=== PATIENT | male | born 1985 | race Caucasian/White ===

== ENCOUNTER 2017-03-05 12:49 | Emergency (ER) | payer SELFPAY ==
[~2017-03-05] VITALS: Ht 172.7 cm; Wt 146.8 kg
[~2017-03-05 12:49] MED LIST: PANT40TA PO
[2017-03-05 12:55] VITALS: TEMP 36.7; Ht 172.7 cm; Wt 146.8 kg
[2017-03-05 13:37] LABS: BASO % 0.1 %; BASO ABS # 0.01 K/uL (0-0.2); COMPLETE YES; EOS % 1.6 %; HEMATOCRIT 48.8 % (42-52); IG% 0.4 %; LYMPH % 16.9 %; LYMPH ABS # 2.04 K/uL (1.2-3.4); MEAN CELL VOLUME 82.7 fL (80-100); MEAN CORPUSCULAR HEMOGLOBIN 27.8 pg (25-34); MEAN CORPUSCULAR HGB CONC 33.6 g/dl (32-36); MEAN PLATELET VOLUME 8.7 fL (7.4-10.4); PLATELET COUNT 371 K/uL (130-400); WHITE BLOOD COUNT 12.06 K/uL (4.8-10.8)
--- NOTE | 2017-03-05 13:37 | DIAGNOSTIC IMAGING REPORT ---
TWO VIEW CHEST CLINICAL HISTORY: Cough. FINDINGS: PA and lateral chest radiographs are obtained. No prior studies are available for comparison at the time of dictation. The examination is degraded by large body habitus. The cardiomediastinal silhouette is unremarkable. The lungs and pleural spaces are clear. There is no pneumothorax. The bony thorax appears intact. IMPRESSION: No active disease in the chest. Electronically signed by: Deniz Lopez M.D. 03/05/2017 1:35 PM Dictated Date/Time: 03/05/2017 1:34 PM
--- NOTE | 2017-03-05 13:52 | EMERGENCY ROOM VISIT NOTE ---
ED Visit Note First contact with patient: 13:05 CHIEF COMPLAINT: Cough with brown mucus, congestion and drainage HPI: This patient complains of gradual onset over the past 2 weeks, of a runny nose and congestion with mild facial pain. Started with a tickle in his throat and then started coughing. Initially coughing up clear mucus, now has turned to a yellow-brown color. Feeling generally tired and ill, with some subjective chills, but no fevers. Does complain of a sore, irritated throat. Denies nausea or vomiting, difficulty swallowing, headache, neck pain, shortness of breath, chest pain, abdominal pain, diarrhea or constipation, urinary symptoms, or rash. Patient states the main reason he is here is because he was worried about his "Monroe's esophagus," though he states he has had several endoscopies over the past several years, last study was 2 years ago when his GI doctor cleared him and told him he no longer had to follow up with routine endoscopy. He denies vomiting or coughing up blood, difficulty or pain with swallowing, chest pain, or stomach pain. REVIEW OF SYSTEMS: A complete 10 point review of systems was reviewed with the patient with pertinent positives and negatives as per history of present illness. All else were negative. PMH: The patient is healthy; there is no significant medical or surgical history. SOCIAL HISTORY: Patient lives at home. Does not use alcohol excessively. PHYSICAL EXAM: Vital Signs: Reviewed Nurse's notes. Vital signs stable and afebrile. CONSTITUTIONAL: No acute distress. Nontoxic appearing and well-hydrated. Alert and oriented X 4 with normal affect. FACE: Some tenderness bilaterally over the zygomatic arches but no reddening of the skin. HEENT: Normocephalic, atraumatic. Pupils equal, round and reactive to light, EOMI. TMs normal. Pharynx erythematous, no exudate or significant edema, uvula midline. Moist mucous membranes NECK: Supple, full active range of motion without discomfort. RESPIRATORY: Clear to auscultation bilaterally with no wheezing, crackles, rhonchi or stridor. Equal expansion bilaterally. CARDIOVASCULAR: Regular rate and rhythm with no murmurs, rubs or gallops. Normal peripheral perfusion. No edema. GASTROINTESTINAL: Soft, nontender, nondistended. Bowel sounds present in all quadrants. MUSCULOSKELETAL: Full range of motion of all joints without discomfort. INTEGUMENTARY: No rash or other significant dermatologic conditions noted. NEUROLOGIC: Cranial nerves II-XII grossly intact. No focal neurologic deficits noted. ED COURSE: I examined the patient. Differential diagnosis includes sinusitis viral versus bacterial, pharyngitis viral versus bacterial, URI, bronchitis, pneumonia, among others. Basic labs reviewed, mild leukocytosis with left shift most likely related to upper respiratory infection. CXR reviewed, no evidence of pneumonia or other acute abnormality. Large amount of white-yellow mucus noted in the posterior pharynx, suspect sinus drainage as cause for throat irritation and coughing. I do not suspect any complication of Monroe's esophagus or esophageal irritation, patient's symptoms seemed to be all related to posterior nasal drainage, suspected sinus infection. Given the duration and progressively worsening symptoms, will place patient on antibiotics, prescription for amoxicillin sent to pharmacy. Patient was instructed to follow up with his PCP, he verbalized understanding. Patient was discharged home in stable condition. Medication Reconciliation: I attest that I have personally reviewed the patient' s current medication list. Blood pressure screening: The patient was found to have an elevated blood pressure and was referred to their primary doctor for recheck and further treatment. I discussed the patient with Dr. Plaza, who agrees with my assessment and plan. Current/Historical Medications Scheduled Amoxicillin (Amoxil), 500 MG PO TID Pantoprazole (Protonix), 40 MG PO BID Allergies Coded Allergies: No Known Allergies (Unverified , 03/05/17) Vital Signs Date Time Temp Pulse Resp B/P (MAP) Pulse Ox O2 Delivery O2 Flow Rate FiO2 03/05/17 14:47 80 18 153/84 99 03/05/17 12:55 36.7 91 20 144/89 96 Room Air Laboratory Results 03/05/17 13:30 Red Blood Count 5.90, Mean Corpuscular Volume 82.7, Mean Corpuscular Hemoglobin 27.8, Mean Corpuscular Hemoglobin Concent 33.6, Mean Platelet Volume 8.7, Neutrophils (%) (Auto) 75.0, Lymphocytes (%) (Auto) 16.9, Monocytes (%) (Auto) 6.0, Eosinophils (%) (Auto) 1.6, Basophils (%) (Auto) 0.1, Neutrophils # (Auto) 9.05, Lymphocytes # (Auto) 2.04, Monocytes # (Auto) 0.72, Eosinophils # (Auto) 0.19, Basophils # (Auto) 0.01 03/05/17 13:30 Test 03/05/17 13:30 White Blood Count 12.06 K/uL (4.8-10.8) Red Blood Count 5.90 M/uL (4.7-6.1) Hemoglobin 16.4 g/dL (14.0-18.0) Hematocrit 48.8 % (42-52) Mean Corpuscular Volume 82.7 fL (80-100) Mean Corpuscular Hemoglobin 27.8 pg (25-34) Mean Corpuscular Hemoglobin Concent 33.6 g/dl (32-36) Platelet Count 371 K/uL (130-400) Mean Platelet Volume 8.7 fL (7.4-10.4) Neutrophils (%) (Auto) 75.0 % Lymphocytes (%) (Auto) 16.9 % Monocytes (%) (Auto) 6.0 % Eosinophils (%) (Auto) 1.6 % Basophils (%) (Auto) 0.1 % Neutrophils # (Auto) 9.05 K/uL (1.4-6.5) Lymphocytes # (Auto) 2.04 K/uL (1.2-3.4) Monocytes # (Auto) 0.72 K/uL (0.11-0.59) Eosinophils # (Auto) 0.19 K/uL (0-0.5) Basophils # (Auto) 0.01 K/uL (0-0.2) RDW Standard Deviation 42.1 fL (36.4-46.3) RDW Coefficient of Variation 14.0 % (11.5-14.5) Immature Granulocyte % (Auto) 0.4 % Immature Granulocyte # (Auto) 0.05 K/uL (0.00-0.02) Anion Gap 6.0 mmol/L (3-11) Est Creatinine Clear Calc Drug Dose 158.7 ml/min Estimated GFR () 122.4 Estimated GFR (Non- 105.6 BUN/Creatinine Ratio 9.9 (10-20) Calcium Level 9.1 mg/dl (8.5-10.1) Departure Information Impression Primary Impression: Sinusitis Dispostion Home / Self-Care Condition GOOD Prescriptions Amoxicillin (AMOXIL) 500 Mg Cap 500 MG PO TID for 10 Days, #30 CAP Prov: Vandana Rahman CRNP 03/05/17 Referrals Matthew Ross PA-C (PCP) Patient Instructions ED Sinusitis Leroy Summers, [facility] Additional Instructions You are being treated for a sinus infection. Take prescription medications as prescribed. Amoxicillin 500 mg 3 times a day for 10 days. All antibiotics have the potential to cause diarrhea. A few develop a rash while on this medication stop the medication and see your family physician for evaluation. You may take a probiotic while taking the antibiotic to help prevent diarrhea. Ibuprofen(Motrin, Advil) may be used for fever or pain. Use 600mg every 6-8 hours as needed. Take with food. Avoid using more than 2400mg in a 24 hour period. Do not use 2400mg per day for more than three consecutive days without physician direction. Prolonged inappropriate use can lead to stomach upset or ulcers. (AND/OR) Acetaminophen(Tylenol) may be used for fever or pain. Use 1000mg every 8 hours as needed. Avoid using more than 3000mg in a 24 hour period. Use warm salt water gargles. And drink warm tea to help soothe your throat. Use saline nasal spray to help keep your nasal passages moist and help reduce inflammation. You may also try nasal Flonase or nasal next, 2 sprays to each nostril once a day to help reduce nasal inflammation and drainage. Follow-up with your PCP in the next few days for re-evaluation, or sooner if your symptoms are worsening. Return to emergency department if you develop symptoms of difficulty breathing, wheezing, chest pain, increased pain or difficulty swallowing, persistent high fevers after taking antibiotics for more than 24 hours, or any other concerns. Problem Qualifiers Primary Impression: Sinusitis Sinusitis location: unspecified location Chronicity: acute Recurrence: not specified as recurrent Qualified Codes: J01.90 - Acute sinusitis, unspecified
[2017-03-05 13:54] LABS: BUN/CREATININE RATIO 9.9 (10-20); CALCIUM 9.1 mg/dl (8.5-10.1); CREATININE 0.96 mg/dl (0.60-1.40)
[2017-03-05] MEDS ORDERED: AMOX500C3 PO (14:33)
[2017-03-05 14:47] VITALS: BP 153/84; PULSE 80; O2SAT 99
[2017-03-15] MEDS ORDERED: CEFU500T16 PO (08:46)
== END 2017-03-05 14:48 | disposition home or self-care (01) ==
LOC: C.EDB 12:52 → C.EDC 14:48
DX: J01.90 Acute sinusitis, unspecified (principal)

== ENCOUNTER 2017-03-09 20:13 | Emergency (ER) | payer SELFPAY ==
[~2017-03-09] VITALS: Ht 172.7 cm; Wt 135.7 kg
[~2017-03-09 20:13] MED LIST changes: +AMOX500C3 PO
[2017-03-09 20:17] VITALS: TEMP 36.7; Ht 172.7 cm; Wt 135.7 kg
[2017-03-09] MEDS ORDERED: IBUP-1050 PO (20:59)
[2017-03-09 21:07] VITALS: BP 131/81; PULSE 81; O2SAT 96
--- NOTE | 2017-03-09 23:02 | EMERGENCY ROOM VISIT NOTE ---
History First contact with patient: 20:30 Chief Complaint: SORETHROAT Stated Complaint: PAIN IN THROAT, TONGUE NUMBNESS History of Present Illness The patient is a 32 year old male who presents to the Emergency Room with complaints of pain in his throat for the past several days. The patient was seen and evaluated 2 days ago where he was diagnosed with a sinusitis. He was started on amoxicillin and states that much of his sinus drainage and congestion has improved. He feels this is much better today than it had been. The patient continues to complain of irritation in his throat, and identifies his discomfort is very low in the throat roughly at the level of the cricoid. He has a history of Monroe's esophagus, and is concerned that this may have relapsed. The patient has not had fever or chills. He does have a history of GERD, but is not currently taking his Protonix. 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 Review of Systems More than 10 systems were reviewed and otherwise negative with the exception of history of present illness. Past Medical/Surgical History History of Monroe's esophagitis Family History No pertinent family history Social History Smoking Status: Current Every Day Smoker Housing Status: lives with family Current/Historical Medications Scheduled Amoxicillin (Amoxil), 500 MG PO TID Pantoprazole (Protonix), 40 MG PO BID Scheduled PRN Ibuprofen (Advil), 600 MG PO DAILY PRN for Pain Allergies Coded Allergies: No Known Allergies (Unverified , 03/09/17) Physical Exam Vital Signs Date Time Temp Pulse Resp B/P (MAP) Pulse Ox O2 Delivery O2 Flow Rate FiO2 03/09/17 21:07 81 20 131/81 96 03/09/17 20:20 97 Room Air 03/09/17 20:17 36.7 86 20 141/81 97 Room Air Pain Rating (0-10): 5.0 Physical Exam VITALS: Vitals are noted on the nurse's note and reviewed by myself. Vital signs stable. GENERAL: Well-developed, well-nourished, white male, who is in no acute distress and resting comfortably. Patient is cooperative with the examination. HEAD: Normocephalic atraumatic. EARS: External ear normal. External auditory canals clear, tympanic membranes pearly remy without erythema or effusion bilaterally. EYES: Pupils equal round and reactive to light and accommodation. Conjunctivae without injection, sclerae without icterus. Extraocular movements intact. NOSE: Patent, turbinates without inflammation or discharge. MOUTH: Mucous membranes moist. Tonsils are not enlarged. Pharynx without erythema, blood, or exudate. Uvula midline. Airway patent. NECK: Supple without nuchal rigidity. No lymphadenopathy. No thyromegaly. Cervical spine is nontender. HEART: Regular rate and rhythm without murmurs gallops or rubs. LUNGS: Clear to auscultation bilaterally without wheezes, rales or rhonchi. No retractions or accessory muscle use. Medical Decision & Procedures ED Course Physical exam and history were performed. Nursing notes, EMR, and Medication List were personally reviewed. Patient appears to have pain that is very deeply located in his throat. The patient describes it as a burning sensation. I was able to review the patient' s EMR at this facility with him. His last endoscopy was 20 months ago which did show inflammation with biopsy negative for Monroe's esophagitis. He did have an EGD in 2011 which did return as positive for Monroe's esophagitis. At the patient's visit 2 days ago he had blood work, and he was not anemic at that time. His vital signs are normal today. Overall the patient does not appear to have active bleed that would require emergent endoscopy, which is the patient 's concern today. He is on amoxicillin which would cover for strep. I suspect that his symptoms are likely an exacerbation of chronic GERD. He is currently not taking Protonix, and I feel that he should return to his dosing of twice daily. 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 He was otherwise invited back to the ER with any new, worsening, or concerning symptoms. The chart was completed utilizing [employer] Voice Recognition Software. Grammatical errors, random word insertions, pronoun errors, and incomplete sentences are an occasional consequence of this system due to software limitations, ambient noise, and hardware issues. Any formal questions or concerns about the content, text, or information contained within the body of this dictation should be directly addressed to the provider for clarification. . Medical Decision Differential diagnosis: Etiologies such as viral syndrome, tonsillitis, streptococcal pharyngitis, mononucleosis, peritonsillar abscess, retropharyngeal abscess, otitis, pneumonia , influenza, as well as others were entertained. Impression Primary Impression: Throat pain in adult Additional Impression: History of Monroe's esophagus Departure Information Dispostion Home / Self-Care Condition GOOD Referrals Corry Stevens, DO Forms HOME CARE DOCUMENTATION FORM, IMPORTANT VISIT INFORMATION Patient Instructions [facility] Additional Instructions You were seen and evaluated today on an emergency basis only. This is not a substitute for, or an effort to provide, complete comprehensive medical care. It is not possible to recognize and treat all injuries or illnesses in a single emergency department visit. For this reason it is recommended that you followup with Gastroenterology next week for ongoing care and evaluation. Begin your Protonix twice daily. You are welcome to return to the emergency department anytime with new, worsening, or concerning symptoms. Problem Qualifiers
== END 2017-03-09 21:09 | disposition home or self-care (01) ==
LOC: C.EDB 20:14 → C.EDD 21:09
DX: R07.0 Pain in throat (principal); K22.70 Barrett's esophagus without dysplasia; F17.200 Nicotine dependence, unspecified, uncomplicated

== ENCOUNTER → 2017-03-16 | Day surgery (SDC) | payer SELFPAY ==
[2017-03-15 08:47] VITALS: Ht 175.3 cm; Wt 140.9 kg
[~2017-03-16] VITALS: Ht 175.3 cm; Wt 140.9 kg
[~2017-03-16] MED LIST changes: -AMOX500C3 PO; +CEFU500T16 PO; +LIDOCAINE HCL 2% 2 ML VIAL (20MG/ML) ONE; +MIDAZOLAM HCL 1 MG/ML 2ML VIAL ONE; +PROPOFOL IV EMULSION 10 MG/ML 20 ML VIAL IV ONE; +SODIUM CHLORIDE 0.9% 500ML 500 ML IV ONE
[2017-03-16 09:40] VITALS: TEMP 36.9
--- NOTE | 2017-03-16 10:17 | Endo History and Physical ---
History & Physical Date of Service: Mar 16, 2017. Chief Complaint: Monroe's Referring Physician: Jose D Villagran History of Present Illness Hx of Monroe's esophagus. Past Medical History Reflux Past Surgical History Hx Cardiac Surgery: No Hx Internal Defibrillator: No Hx Pacemaker: No Hx Abdominal Surgery: No Hx of Implantable Prosthesis: No Hx Post-Op Nausea and Vomiting: No Hx Cancer Surgery: No Hx Thoracic Surgery: No Hx Orthopedic: No Hx Urinary Tract Surgery: No Family History None Social History Smoking Status: Former Smoker Hx Substance Use: No (MARIJUANA IN PAST "NOT IN A LONG TIME") Hx Alcohol Use: Yes (OCCASIONALLY) Allergies Coded Allergies: No Known Allergies (Unverified , 03/15/17) Current Medications Reported Home Medications Medications Dose Route/Sig Max Daily Dose Days Date Category Ceftin (Cefuroxime Axetil) 500 Mg Tab 500 Mg PO BID 03/15/17 Reported Protonix (Pantoprazole Sodium) 40 Mg Tab 40 Mg PO BID 04/28/15 Reported Vital Signs Weight (Kilograms): 140.91 Height (Feet): 5 Height (Inches): 9 Date Time Temp Pulse Resp B/P (MAP) Pulse Ox O2 Delivery O2 Flow Rate FiO2 03/16/17 09:40 36.9 79 18 131/73 (92) 96 Room Air Physical Exam General Appearance: no apparent distress Respiratory/Chest: Auscultation: breath sounds normal Cardiovascular: Heart Auscultation: RRR Abdomen: Inspection & Palpation: soft, no tenderness, guarding & rebound, no masses Assessment and Plan stable for upper endoscopy
--- NOTE | 2017-03-16 10:43 | Discharge Instructions ---
Endoscopy Patient Instructions Date / Procedure(s) Performed Mar 16, 2017. EGD Allergy Information Coded Allergies: No Known Allergies (Unverified , 03/15/17) Discharge Date / Findings Mar 16, 2017. Short segment Monroe's. Provider Instructions Activity Restrictions - No exercising or heavy lifting for 24 hours. - Do not drink alcohol the day of the procedure. - Do not drive a car or operate machinery until the day after the procedure. - Do not make any important decisions or sign important papers in 24 hours after the procedure. Following Day: - Return to full activity which may include returning to work/school. Diet Start your diet with liquids and light foods (jello, soup, juice, toast). Then eat your usual diet if not nauseated. Treatment For Common After Affects For mild abdominal pain, bloating, or excessive gas: - Rest - Eat lightly - Lie on right side Follow-Up Information Follow-up with Jose D Villagran as scheduled Anesthesia Information What You Should Know You have had a procedure that required some medicine to reduce anxiety and discomfort. This treatment is called moderate sedation. After receiving the treatment, you may be sleepy, but you will be able to breathe on your own. The effects of the treatment may last for several hours. Follow these instructions along with Activity/Diet recommendations noted above: * Do NOT do anything where dizziness or clumsiness would be dangerous. * Rest quietly at home today, then you can be up and about tomorrow. * Have a responsible person stay with you the rest of today. * You may have had an I.V. today. If so, you may take the dressing off later today. Recommendations Call your doctor if: * Trouble breathing * Continuous vomiting for more than 24 hours * Temperature above 101 degrees * Severe abdominal pain or bloating * Pain not relieved by pain medicine ordered * There is increased drainage or redness from any incision * A large amount of rectal bleeding greater than 2-3 tablespoons. (If you had a polyp/s removed or have hemorrhoids, a small amount of blood - from the rectum is to be expected.) * You have any unanswered questions or concerns. IN THE EVENT OF A SERIOUS EMERGENCY, GO TO THE NEAREST EMERGENCY ROOM Your discharge instructions were prepared by provider Abdulaziz Floyd. Patient Instructions Signature Page Michael Velasco Patient (or Guardian) Signature/Date: I have read and understand the instructions given to me by my caregivers. Caregiver/RN/Doctor Signature/Date: The above-named patient and/or guardian has received patient instructions on this date. + Original Patient Signature Page (only) stays with chart. Please make copy for patient.
--- NOTE | 2017-03-16 10:47 | GI REPORT ---
Procedure Date: 03/16/2017 10:14 AM Procedure: Upper GI endoscopy Indications: Monroe's esophagus Medicines: See the Anesthesia note for documentation of the administered medications Complications: No immediate complications. Estimated Blood Loss: Estimated blood loss was minimal. Procedure: Pre-Anesthesia Assessment: - Prior to the procedure, a History and Physical was performed, and patient medications, allergies and sensitivities were reviewed. The patient's tolerance of previous anesthesia was reviewed. - The risks and benefits of the procedure and the sedation options and risks were discussed with the patient. All questions were answered and informed consent was obtained. - Patient identification and proposed procedure were verified prior to the procedure by the physician and the nurse. The procedure was verified in the pre-procedure area. - Pre-procedure physical examination revealed no contraindications to sedation. - After reviewing the risks and benefits, the patient was deemed in satisfactory condition to undergo the procedure. After obtaining informed consent, the endoscope was passed under direct vision. Throughout the procedure, the patient's blood pressure, pulse, and oxygen saturations were monitored continuously. The scope was introduced through the mouth, and advanced to the third part of duodenum. The upper GI endoscopy was accomplished without difficulty. The patient tolerated the procedure well. Findings: There were esophageal mucosal changes consistent with short-segment Monroe's esophagus present in the distal esophagus. Biopsies were taken with a cold forceps for histology. Verification of patient identification for the specimen was done by the physician and nurse using the patient's name and medical record number. Estimated blood loss was minimal. The stomach was normal. The examined duodenum was normal. The cardia and gastric fundus were normal on retroflexion. Impression: - Esophageal mucosal changes consistent with very short-segment Monroe's esophagus. Biopsied. - No worrisome mucosal features. - No evidence of active erosive esophagitis. - Normal stomach. - Normal examined duodenum. Recommendation: - Await pathology results. - Continue present medications. - Discharge patient to home. Abdulaziz Floyd M.D. Abdulaziz Floyd MD 03/16/2017 10:46:42 AM This report has been signed electronically. Note Initiated On: 03/16/2017 10:14 AM I attest to the content of the Intraoperative Record and orders documented therein, exceptions below
--- NOTE | 2017-03-16 11:17 | Anesthesiology Progress Note ---
Anesthesia Post Op Note Date & Time Mar 16, 2017 at 11:17 Vital Signs Pain Intensity: 0 Vital Signs Past 12 Hours Date Time Temp Pulse Resp B/P (MAP) Pulse Ox O2 Delivery O2 Flow Rate FiO2 03/16/17 11:05 77 20 114/85 (95) 98 Room Air 03/16/17 10:50 90 20 122/83 (96) 96 Room Air 03/16/17 09:40 36.9 79 18 131/73 (92) 96 Room Air Notes Mental Status: alert / awake / arousable, participated in evaluation Pt Amnestic to Procedure: Yes Nausea / Vomiting: adequately controlled Pain: adequately controlled Airway Patency, RR, SpO2: stable & adequate BP & HR: stable & adequate Hydration State: stable & adequate Anesthetic Complications: no major complications apparent
[2017-03-16 11:20] VITALS: BP 129/97; PULSE 80; O2SAT 98
== END | disposition home or self-care (01) ==
LOC: C.GI 09:15
PROVIDERS: ATTEND Internal Medicine Gastroenterology
DX: K22.70 Barrett's esophagus without dysplasia (principal); K21.0 Gastro-esophageal reflux disease with esophagitis; Z87.19 Personal history of other diseases of the digestive system; Z87.891 Personal history of nicotine dependence